=== PATIENT | male | born 1975 | race African-American/Black ===

== ENCOUNTER 2019-09-11 18:59 | Inpatient (IN) | payer MEDICAID ==
[~2019-09-11] VITALS: Ht 167.6 cm; Wt 91.6 kg
[2019-09-11 19:03] VITALS: BP 142/77
--- NOTE | 2019-09-11 19:17 | NUR ---
Dr. Bower examining patient.
--- NOTE | 2019-09-11 19:20 | NUR ---
EKG BEING OBTAINED. PHLEB OBTAINING LABS. PT NOT MAKING EYE CONTACT BUT WILLING TO ANSWER QUESTIONS. SITTER AT BEDSIDE. VITALLY STABLE. WILL CONTINUE TO MONITOR.
--- NOTE | 2019-09-11 19:25 | NUR ---
PT BIBA FOR SUICIDAL IDEATION. FOUND BY EMS WALKING IN TRAFFIC IN FRONT OF CARS. PT STATES HE CURRENTLY HAS THE INTENT TO KILL HIMSELF. STATES HE HEARS VOICES WHICH TELL HIM HE SHOULD JUMP IN FRONT OF A TRAIN TO END THE PAIN. STATES THE VOICES ALSO TELL HIM TO HARM OTHER PEOPLE. STATES HE WAS LOOKING FOR A TRAIN TO KILL HIMSELF. STATES HE DOES NOT HEAR THE VOICES AT THIS MOMENT. PT NOT MAKING EYE CONTACT BUT APPEARS FATIGUED AND SAD. PT STATES HE IS HOMELESS AND HIS LUGGAGE WAS STOLEN 8 DAYS AGO AND HAS NOT TAKEN HIS MEDICATION FOR BIPOLAR DEPRESSION AND PSYCHOSIS. PT PLACED ON 1:1 OBSERVATION FOR SAFETY, ROOM SECURED, PT CHANGED INTO HOSPITAL GOWN AND SOCKS, BELONGINGS GIVEN TO SECURITY. PT DENIES PAIN, RR EVEN AND UNLABORED, VSS. BED IN LOWEST POSITION, 2 SIDERAILS UP, CURTAIN OPEN. WILL CONTINUE TO MONITOR.
[2019-09-11 19:38] LABS: BASOPHILS # (AUTO) 0.1 K/uL (0.00-0.22); BASOPHILS % (AUTO) 1.2 % (0.0-2.0); EOSINOPHILS # (AUTO) 0.5 K/uL (0-0.4); EOSINOPHILS % (AUTO) 7.6 % (0.0-4.0); HEMOGLOBIN 12.5 g/dL (12.0-18.0); LYMPHOCYTES # (AUTO) 2.1 K/uL (2.0-11.5); MEAN CORPUSCULAR HEMOGLOBIN 28 pg (27-31); MEAN CORPUSCULAR HGB CONC 33 g/dL (33-37); MONOCYTES # (AUTO) 0.4 K/uL (0.8-1.0); MONOCYTES % (AUTO) 6.5 % (1.7-9.3); NEUTROPHILS # (AUTO) 3.6 K/uL (1.8-7.7); NEUTROPHILS % (AUTO) 53.7 % (42.2-75.2); PLATELET COUNT (AUTO) 230 K/uL (140-450); RED BLOOD CELL COUNT(AUTO) 4.52 MIL/uL (4.20-6.10); WHITE BLOOD COUNT (AUTO) 6.7 K/uL (4.8-10.8)
[2019-09-11 19:47] LABS: ALBUMIN 4.5 g/dL (3.4-5.0); ANION GAP 8.1 (8-16); ASPARTATE AMINOTRANSFERASE 42 U/L (15-37); CARBON DIOXIDE 34.1 mmol/L (21-32); CHLORIDE 102 mmol/L (98-107); CREATININE 1.5 mg/dL (0.6-1.3); GFR ARICAN-AMERICAN 65 mL/min (>90); GLUCOSE 94 mg/dL (74-106); POTASSIUM 4.2 mmol/L (3.5-5.1); SODIUM SERUM 140 mmol/L (136-145); TOTAL BILIRUBIN 0.5 mg/dL (0.0-1.0); UREA NITROGEN, BLOOD 12 mg/dL (7-18)
[2019-09-11 19:55] LABS: ACETAMINOPHEN < 0.5 ug/ml (10-30)
--- NOTE | 2019-09-11 20:03 | NUR ---
CC Aware of patient, will help with bed placement once cleared and evaluated
--- NOTE | 2019-09-11 20:30 | NUR ---
PT RESTING COMFORTABLY, SNORING, BUT EASILY AROUSABLE. VITALLY STABLE. NEUROLOGICALLY INTACT. JUST FINISHED EATING SNACK. SITTER AT BEDSIDE. WILL CONTINUE TO MONITOR.
[2019-09-11 20:33] LABS: BARBITURATE, URINE NEGATIVE ng/ml (NEG <=200); BENZODIAZEPINE, URINE NEGATIVE ng/mL (NEG <=200); CANNABINOID, URINE POSITIVE ng/mL (NEG <=50); COCAINE, URINE NEGATIVE ng/mL (NEG <=300); PHENCYCLIDINE SCREEN,URINE POSITIVE ng/mL (NEG <=25)
[2019-09-11 20:34] LABS: OPIATE, URINE NEGATIVE ng/mL (NEG <=2000)
--- NOTE | 2019-09-11 21:30 | NUR ---
PT SNORING, EASILY AROUSABLE. NEUROLOGICALLY INTACT. VITALLY STABLE. SITTER AT BEDSIDE. WILL CONTINUE TO MONITOR.
--- NOTE | 2019-09-11 22:29 | NUR ---
PT SLEEPING BUT EASILY AROUSABLE. DENIES NEEDS AT THIS TIME. VITALLY STABLE. SITTER AT BEDSIDE. WILL CONTINUE TO MONITOR.
--- NOTE | 2019-09-12 00:51 | NUR ---
PT SNORING; EASILY AROUSABLE. VSS. STATES HE IS HUNGRY; GIVING HIM FOOD. SITTER AT BEDSIDE. WILL CONTINUE TO MONITOR.
--- NOTE | 2019-09-12 01:11 | NUR ---
Intake paperwork has been sent to the [facility]/ [facility]/ [facility] [place]/ [facility]/ [facility]/ [facility] Will keep facility informed of any updates
[2019-09-12] MEDS ORDERED: ACETAMINOPHEN 325 MG TAB PO PRN (01:25)
[2019-09-12] MEDS ORDERED: HYDROcodone/APAP 5/325 MG 1 TAB TAB PO PRN (01:25)
[2019-09-12] MEDS ORDERED: LORazepam 2 MG/ML VIAL IM/IVP PRN (01:25)
[2019-09-12] MEDS ORDERED: DOCUSATE SODIUM 100 MG GELCAP PO PRN (01:25)
[2019-09-12] MEDS ORDERED: MORPHINE SULFATE 2 MG/ML SYR IVP PRN (01:25)
[2019-09-12] MEDS ORDERED: ONDANSETRON 4 MG/2 ML VIAL IM/IVP PRN (01:25)
--- NOTE | 2019-09-12 01:55 | NUR ---
Patient will be admitted to care of YANEZ. Admited to MED SURG. Will go to room 109B. Belongings list completed. Report to KIMBERLY CORTEZ.
[2019-09-12] MEDS ORDERED: INSULIN LISPRO SLIDING SCALE 100 UNITS/ML VIAL SUBQ PRN (02:00)
[2019-09-12] MEDS ORDERED: DEXTROSE 50% 50 ML SYR IVP PRN (02:00)
[2019-09-12 03:00] VITALS: BP 115/63
--- NOTE | 2019-09-12 03:00 | NUR ---
RECEIVED BEDSIDE REPORT FROM ED RN FOR PT'S CONTINUITY OF CARE. PT IS AAOX3, AMBULATORY, ON ROOM AIR, HAS RIGHT HAND 20G SALINE LOCK, SKIN IS INTACT, DENIES PAIN AT THIS TIME, REQUESTED AND PROVIDED SOME SNACKS, SUICIDE RISK PROTOCOL IN PLACE, SAFETY MEASURES IN PLACE, SAFETY ROOM CHECKLIST DONE. ORIENTED PT TO THE HOSPITAL ENVIRONMENT AND LICENSED SOCIAL WORKER ROUTINE, PT VERBALIZED UNDERSTANDING. PT ON 1:1 SITTER AT BEDSIDE.
[2019-09-12] MEDS ORDERED: QUET100T PO (03:28)
[2019-09-12] MEDS ORDERED: TRAZ-343 PO (03:28)
[2019-09-12] MEDS ORDERED: LORA-476 PO (03:28)
[2019-09-12] MEDS ORDERED: BUPR-160 PO (03:28)
[2019-09-12] MEDS ORDERED: LORazepam 1 MG TAB PO PRN (03:30)
--- NOTE | 2019-09-12 04:00 | NUR ---
PT FELL ASLEEP DURING ADMISSION QUESTIONING. PT COMFORTABLE AND SHOWS NO SIGNS OF DISTRESS.
[2019-09-12 04:29] LABS: MAGNESIUM 2.6 mg/dL (1.8-2.4); PHOSPHORUS 3.6 mg/dL (2.5-4.9); THYROID STIMULATING HORMONE 0.94 uIU/mL (0.34-3.74)
[2019-09-12] MEDS: NACL 0.9% 1,000 ML IV SCH ×2 (05:00→18:03)
--- NOTE | 2019-09-12 05:00 | NUR ---
ADMINISTER IVF ORDERED. PT ASLEEP.
[2019-09-12 05:13] LABS: APPEARANCE,URINE CLEAR (CLEAR); BILIRUBIN,URINE NEGATIVE (NEGATIVE); BLOOD, URINE NEGATIVE (NEGATIVE); COLOR,URINE YELLOW (YELLOW); LEUKOCYTE ESTERASE ,URINE NEGATIVE (NEGATIVE); NITRITE, URINE NEGATIVE (NEGATIVE); UGLUCOSE 1+ (NEGATIVE)
[2019-09-12 05:17] LABS: RBC,URINE 0-5 /HPF (0-5); WBC,URINE NONE SEEN /HPF (0-5)
--- NOTE | 2019-09-12 06:15 | NUR ---
CHANGE OF SITTER, GAVE REPORT TO JOSE SORENSON. PT REQUESTED AND PROVIDED SOME MORE SNACKS. PT IN STABLE CONDITION. NO VOICES HEARD OR THOUGHTS OF HARMING SELF OR OTHERS. WILL ENDORSE TO AM SHIFT RN FOR PT'S CONTINUITY OF CARE.
[2019-09-12 07:18] LABS: BASOPHILS # (AUTO) 0.1 K/uL (0.00-0.22); BASOPHILS % (AUTO) 0.8 % (0.0-2.0); EOSINOPHILS # (AUTO) 0.5 K/uL (0-0.4); EOSINOPHILS % (AUTO) 7.5 % (0.0-4.0); HEMATOCRIT 36.2 % (36-52); HEMOGLOBIN 11.7 g/dL (12.0-18.0); LYMPHOCYTES # (AUTO) 2.8 K/uL (2.0-11.5); LYMPHOCYTES % (AUTO) 42.6 % (20.5-51.1); MEAN CORPUSCULAR HEMOGLOBIN 27 pg (27-31); MEAN CORPUSCULAR HGB CONC 32 g/dL (33-37); MEAN CORPUSCULAR VOLUME 84.7 fL (80-94); MONOCYTES # (AUTO) 0.5 K/uL (0.8-1.0); MONOCYTES % (AUTO) 7.8 % (1.7-9.3); NEUTROPHILS # (AUTO) 2.7 K/uL (1.8-7.7); NEUTROPHILS % (AUTO) 41.3 % (42.2-75.2); PLATELET COUNT (AUTO) 172 K/uL (140-450); RED BLOOD CELL COUNT(AUTO) 4.27 MIL/uL (4.20-6.10); RED CELL DISTRIBUTION WIDTH 15.6 % (11.6-13.7); WHITE BLOOD COUNT (AUTO) 6.7 K/uL (4.8-10.8)
[2019-09-12] MEDS ORDERED: BLOOD GLUCOSE MONITORING 1 DEV DEV FS SCH (07:30)
[2019-09-12 07:41] LABS: ANION GAP 8.9 (8-16); CARBON DIOXIDE 30.2 mmol/L (21-32); CREATININE 1.3 mg/dL (0.6-1.3); POTASSIUM 4.1 mmol/L (3.5-5.1)
[2019-09-12 08:00] VITALS: BP 122/71
--- NOTE | 2019-09-12 08:09 | NUR ---
RECEIVED REPORT FROM DIEGO HARRIS FOR CONTINUITY OF CARE. PATIENT ALERT AWAKE ORIENTED NOT IN ANY DISTRESS NOTED. WITH SITTER FOR SAFETY. INITIAL ASSESSMENT INITIATED. PATIENT VERBALIZED THAT HE DOESN'T HAVE SUICIDAL THOUGHTS AND DOESN'T HEAR VOICES AT THIS TIME. NEEDS ATTENDED. WILL CONTINUE TO MONITOR. WAITING FOR PSYCH CONSULT.
[2019-09-12] MEDS: DOCUSATE SODIUM 100 MG GELCAP PO SCH (08:32)
[2019-09-12] MEDS: buPROPion 75 MG TAB PO SCH (08:32)
--- NOTE | 2019-09-12 10:29 | NUR ---
PATIENT RESTING IN BED, NO C/O PAIN. WILL CONTINUE TO MONITOR.
--- NOTE | 2019-09-12 12:50 | NUR ---
RECEIVED REPORT FROM MADINA CORTEZ. PT RESTING IN BED, AWAKE AND ALERT, AOX4. DENIES SI/HI. DENIES VISUAL AND AUDITORY HALLUCINATIONS. PT IS CALM AND COOPERATIVE. PT STATES HE NEEDS TO SPEAK WITH PAPER PATTERN FOLDER FOR HELP GETTING BACK TO HIS PREVIOUS LIVING ACCOMMODATION IN [place] AFTER DISCHARGE--WILL PASS THIS ON TO ASSISTANT TENNIS PROFESSIONAL RN. OTHERWISE ALL NEEDS MET AT THIS TIME. LUNGS CTAB. S1S2 REGULAR RHYTHM. 1:1 SITTER AT BEDSIDE FOR SI PRECAUTIONS.
--- NOTE | 2019-09-12 13:02 | NUR ---
REPORT GIVEN TO BIGG WALL RN FOR CONTINUITY OF CARE. IN STABLE CONDITION.
--- NOTE | 2019-09-12 15:31 | NUR ---
PT PULLED OUT IV ON RT HAND. APPLIED DRESSING RIGHT AWAY. PT UPSET, ASKING FOR SANDWICH. EXPLAINED HE IS ON [facility] DIET, UNABLE TO PROVIDE SANDWICH AT THIS TIME BUT DINNER WILL BE ARRIVING AROUND [phone]. DR. MONTANEZ NOTIFIED REGARDING NO IV ACCESS. PER DR. MONTANEZ, DO NOT NEED TO RE-INSERT IV AT THIS TIME.
[2019-09-12 16:00] VITALS: BP 129/65
--- NOTE | 2019-09-12 17:06 | NUR ---
PT RESTING IN BED, EYES OPEN, NO SIGNS OF DISTRESS. 1:1 SITTER REMAINS AT BEDSIDE.
--- NOTE | 2019-09-12 19:32 | NUR ---
RECEIVED PATIENT FRON AM NURSE, PT IS SLEEPING AT THIS TIME, NO SIGN OF DISTRESS.
--- NOTE | 2019-09-12 19:32 | NUR ---
REPORT TO VIDA CORTEZ. TRANSFER OF CARE AT THIS TIME. Addendum: 09/12/19 at 1933 by Judy Pizarro Meng, RN MICHELLE MCPHERSON
[2019-09-12] MEDS: traZODone 50 MG TAB PO SCH (21:39)
[2019-09-12] MEDS: QUEtiapine FUMARATE 100 MG TAB PO SCH (21:40)
[2019-09-12] MEDS ORDERED: CRUSHER, PILL MC ONE (21:44)
--- NOTE | 2019-09-12 22:00 | NUR ---
SLEEPING SOUNDLY, NO SIGN OF DISTRESS.
[2019-09-13] VITALS: BP 131/68
--- NOTE | 2019-09-13 | NUR ---
AWAKEN FOR V/S, NO COMPLAINTS, REQUESTED FOR A JELLO.
--- NOTE | 2019-09-13 03:55 | NUR ---
AWAKE ASK FOR FOR FOOD, SITTER HAD THE SANDWICH IN HER HAND AND PATIENT JUST GRAB FROM HER. ATE THE SANDWICH FAST.
--- NOTE | 2019-09-13 03:56 | NUR ---
PATIENT PRCTICALLY PUSH THE NURSE SITTER AND RUN TO THE FRIDGE AND GRAB ANOTHER SANDWICH. SECURITY WAS CALLED AND TALK TO HIM BUT NOT LISTEN.
--- NOTE | 2019-09-13 04:21 | NUR ---
PT IS IN BED RESTING QUIETLY.
--- NOTE | 2019-09-13 07:26 | NUR ---
RECEIVED BEDSIDE REPORT FROM SUPERVISOR PLASTERING NURSE. PT IS ASLEEP, 1:1 SITTER BY THE DOOR, NO S/S OF ACUTE DISTRESS NOTED. PT ON ROOM AIR, SKIN IS INTACT. NO IV SITE. WILL CONTINUE TO MONITOR.
[2019-09-13 08:00] VITALS: BP 115/61
--- NOTE | 2019-09-13 08:54 | NUR ---
PATIENT HAS BEEN SCREENED AND CATEGORIZED LOW NUTRITION RISK. PATIENT WILL BE SEEN WITHIN 7 DAYS OF ADMISSION. 09/18/[address]
[2019-09-13] MEDS: DOCUSATE SODIUM 100 MG GELCAP PO SCH (09:00)
--- NOTE | 2019-09-13 10:00 | NUR ---
AM MED ADMINISTERED. TOLERATED WELL. PT DECLINED THE COLACE, STATES THAT HE DOES NOT NEED IT.
[2019-09-13] MEDS: buPROPion 75 MG TAB PO SCH (10:30)
--- NOTE | 2019-09-13 13:52 | NUR ---
[employer] Note: Basic Screen: Yes High Risk DC Screen Yes Name: MACARIO Bhakta Tel: N/A Pre-Admission Living Arrangements: Other Other: TRANSITIONAL HOUSING Prior ADL Independent Current Home Health Name/Tel: N/A Current DME/02 Name/Tel: N/A Current Hospice Name/Tel: N/A Current Dialysis Name/Tel: N/A Healthcare Decision Maker: Patient Advance Directive No - REFUSED Physician Orders for Life Sustaining Treatment Form No Patient/Family Have Educational Needs No Information Taught: Community Resources Person Taught: Patient Teaching Tools: Verbal Factors Affecting Learning: None Participation Level: Active Evaluation: Verbalizes Understanding Needs Additional Education: No Discipline: Case Mgt/Social Svcs Tentative Discharge Plan/Destination: Other Other: [facility] Will require assistance post discharge: No Referred to Resolution Agent: No Tentative Discharge Plan Summary: Patient is a 44-year-old admitted for suicidal ideation. Patient has PMHX of schizophrenia, depression, anxiety, diabetes, and psychosis. Patient was admitted from home. SW met with patient at bedside to verify demographics. SW met with patient and assessed for any risk factors. Patient reported no current SI/HI. Patient stated that he was experiencing auditory hallucinations but only under the influence of substances. Patient reported history of marijuana, methamphetamines, and PCP use. Patient did not quantify how much he uses. Patient reported receiving $1000 from [employer]. SW provided patient with homeless resources, room and board resources, and substance abuse resources. Patient requested for SW to contact [facility], a substance abuse facility that he was a resident of [facility]. Patient stated that he would like to return there after discharge. SW contacted facility [phone] and spoke to Cristhian cardoso. Cristhian stated that counselor Yesika will call SW back to assist with discharge. SW will follow up as needed. Signature: TRICIA Morejon Date: Sep 13, 2019 Time: 13:51
--- NOTE | 2019-09-13 13:57 | NUR ---
PT SLEEPING COMFORTABLY IN BED, NO S/S OF ACUTE DISTRESS. SITTER IS BY THE DOOR.
[2019-09-13 16:00] VITALS: BP 119/63
--- NOTE | 2019-09-13 16:21 | NUR ---
[facility] No open beds at the moment. W ill continue to locate placement
--- NOTE | 2019-09-13 17:54 | NUR ---
ENDORSED PT TO DIEGO KNOX, FOR CONTINUITY OF CARE
--- NOTE | 2019-09-13 17:55 | NUR ---
RECEIVED REPORT FROM LANE. PT IN STABLE CONDITION, NO DISTRESS NOTED, DENIES PAIN. NO IV IN PLACE. CCHO 60G DIET. PT AMBULATORY. RESPIRATIONS EVEN AND UNLABORED ON ROOM AIR. SAFETY MEASURES IN PLACE. CALL LIGHT WITHIN REACH. BED IN LOW POSITION, 1:1 SITTER PRESENT. WILL CONTINUE TO MONITOR.
--- NOTE | 2019-09-13 19:05 | NUR ---
PT ENDORSED TO NIGHT NURSE FOR CONTINUITY OF CARE.
--- NOTE | 2019-09-13 19:45 | NUR ---
A/A/O X4.DENIES ANY DISCOMFORT @ THIS TIME. DENIES SOB.SITTER @ THE BS.
--- NOTE | 2019-09-13 21:00 | NUR ---
DUE MEDS ADM.
[2019-09-13] MEDS ORDERED: CRUSHER, PILL MC ONE (21:27)
[2019-09-13] MEDS: traZODone 50 MG TAB PO SCH (21:30)
[2019-09-13] MEDS: QUEtiapine FUMARATE 100 MG TAB PO SCH (21:31)
--- NOTE | 2019-09-13 22:00 | NUR ---
RESTING COMFORTABLY IN NO ACUTE DISTRESS.SITTER @ THE BS.
--- NOTE | 2019-09-13 23:27 | NUR ---
Pending psych re-evaluation in the am by Dr. Peter
--- NOTE | 2019-09-14 | NUR ---
REFUSED VITAL SIGNS TO BE TAKEN.
--- NOTE | 2019-09-14 02:50 | NUR ---
PT GOT OUT OF BED & WENT TO THE [place] TO GET FOODS.SECURITY WAS CALLED BY ORDER EXPEDITER & RESPONDED.SECURITY SPOKE TO PT.
--- NOTE | 2019-09-14 04:46 | NUR ---
TRISTAD SUGAR CHECK PER PT'S REQUEST 145
--- NOTE | 2019-09-14 05:34 | NUR ---
Patient to be re-evaluated by psych. Will await results of re-evaluation. Will endorse to incoming shift
--- NOTE | 2019-09-14 05:52 | NUR ---
REFUSED BLD DRAW FOR LAB.
--- NOTE | 2019-09-14 06:30 | NUR ---
MADE AWARE PT FEFUSED BLD DRAW.
--- NOTE | 2019-09-14 06:52 | NUR ---
ENDORSED IN NO ACUTE DISTRESS.SAFETY MAINTAINED.LAURYN @ THE BS.
--- NOTE | 2019-09-14 07:00 | NUR ---
PT IS ASLEEP IN BED WITH NO SIGNS OF DISTRESS NOTED WITH SITTER IS AT BEDSIDE. RESPIRATIONS ARE CLEAR AND UNLABORED ON ROOM AIR. SKIN IS WARM, DRY, AND INTACT WITH NO IV IN PLACE. SAFETY MEASURES ARE IN PLACE, CALL LIGHT WITHIN REACH, AND WILL CONTINUE TO MONITOR.
[2019-09-14 08:00] VITALS: BP 138/63
[2019-09-14] MEDS: DOCUSATE SODIUM 100 MG GELCAP PO SCH (09:45)
[2019-09-14] MEDS: buPROPion 75 MG TAB PO SCH (09:45)
--- NOTE | 2019-09-14 09:50 | NUR ---
PT IS ASLEEP IN BED WITH NO SIGNS OF DISTRESS. PT STATES THAT HE HAS NO THOUGHTS OF HARMING HIMSELF OR OTHERS. MEDICATIONS ADMINISTERED PER ORDER AND TOLERATED WELL. SAFETY MEASURES IN PLACE, CALL LIGHT WITHIN REACH , AND WILL CONTINUE TO MONITOR.
--- NOTE | 2019-09-14 12:16 | NUR ---
PT IN BED ASLEEP, NO DISTRESS NOTED. 1:1 SITTER OBSERVING PT. SAFETY MEASURES IN PLACE. CALL LIGHT WITHIN REACH. WILL CONTINUE TO MONITOR.
--- NOTE | 2019-09-14 13:11 | NUR ---
Monitoring and assessing patient's chart and notes. I printed out and noted the instability of patient being transferred or discharged at this time. The hold will this evening 09/13 at 18:23. Will continue to monitor notes and await for re-evaluation of care for stability and the updated hold before continuing to assist with bed placement for behavioral health continuity of care
--- NOTE | 2019-09-14 14:22 | NUR ---
PT REQUESTED TO TAKE A SHOWER. PT ESCORTED TO BATHROOM BY SITTER AND ASSISTED IN TAKING A SHOWER. NO DISTRESS NOTED IN PT, WILL CONTINUE TO MONITOR.
[2019-09-14 16:00] VITALS: BP 122/58
--- NOTE | 2019-09-14 17:00 | NUR ---
PT IS AWAKE AND OUT OF BED AND REPORTS BEING HUNGRY. SITTER IS AT BEDSIDE. PT IS AGITATED AND WANTS TO SPEAK TO THE PHYSICIAN ABOUT DISCHARGE. SAFETY MEASURES IN PLACE AND WILL CONTINUE TO MONITOR.
--- NOTE | 2019-09-14 19:15 | NUR ---
ENDORSED PT TO NIGHT NURSE FOR CONTINUITY OF CARE.
--- NOTE | 2019-09-14 19:22 | NUR ---
RECEIVED BEDSIDE REPORT FROM DAY SHIFT NURSE. PATIENT IS SLEEPING RESPIRATION EVEN UNLABORED ON ROOM AIR. NO DISTRESS NOTED. SKIN IS WARM AND DRY. NO IV SITE. SITTER AT BEDSIDE. PLAN OF CARE WAS UP TO DATE. AWAITING FOR DR. GAMBOA. ALL SAFETY MEASURES IN PLACE. BED IS AT LOW POSITION. WILL CONTINUE TO MONITOR.
--- NOTE | 2019-09-14 20:05 | NUR ---
DR. DAWN AT BEDSIDE. PER LÓPEZ PATIENT IS OKAY TO D/C [facility]. WILL PREPARE ALL DISCHARGE PAPER.
[2019-09-14 20:17] VITALS: BP 141/73
--- NOTE | 2019-09-14 20:37 | NUR ---
PATIENT SIGNED ALL PAPERWORKS EDUCATED ABOUT THE IMPORTANCE OF F/U APPOINTMENT WITH PCP. EDUCATED PT DIAGNOSIS MEDS S/SX WHEN TO GO TO ER. VERBALIZE UNDERSTANDING. AWAITING FOR SECURITY TO BRING HIS BELONGINGS.
[2019-09-14] MEDS: QUEtiapine FUMARATE 100 MG TAB PO SCH (21:00)
[2019-09-14] MEDS: traZODone 50 MG TAB PO SCH (21:00)
--- NOTE | 2019-09-14 21:19 | NUR ---
PT REFUSED SCHEDULED MEDS MEDICATION. PER PATIENT THE MEDICINE MAKES HIM SLEEPY. EDUCATED ON THE PURPOSE OF THE MEDICATION AND THE RISK AND BENEFITS. STILL REFUSED, WILL CONTINUE TO MONITOR.
--- NOTE | 2019-09-14 21:25 | NUR ---
PATIENT LEFT THE FACILITY IN STABLE CONDITION AND WITH BELONGINGS. PATIENT REFUSED FLU AND PNA VACCINE. EDUCATED THE PURPOSE, RISK AND BENEFITS. STILL REFUSED. PER PATIENT HIS GONNA GO TO CATCH A TRAIN HEADING TO VT. ANESTHESIA ASSOCIATE PATIENT.
== END 2019-09-14 21:25 | disposition home or self-care (01) | DRG 812 ==
LOC: MED 18:59 → MTU 09-12 01:23
PROVIDERS: ADMIT General Practice; ATTEND General Practice
DX: T40.7X1A Poisoning by cannabis (derivatives), accidental (unintentional), initial encounter (principal); N17.0 Acute kidney failure with tubular necrosis; G92 Toxic encephalopathy; R45.851 Suicidal ideations; F20.9 Schizophrenia, unspecified; E83.41 Hypermagnesemia; I50.9 Heart failure, unspecified; E11.9 Type 2 diabetes mellitus without complications; F31.9 Bipolar disorder, unspecified; F17.210 Nicotine dependence, cigarettes, uncomplicated; F41.9 Anxiety disorder, unspecified; T40.991A Poisoning by other psychodysleptics [hallucinogens], accidental (unintentional), initial encounter; Z71.6 Tobacco abuse counseling; Y92.89 Other specified places as the place of occurrence of the external cause; Z91.14 Patient's other noncompliance with medication regimen
CPT/HCPCS: 36415; 71045; 80048; 80053; 80305; 81001; 82140; 82948; 83036; 83690; 83735; 83880; 84100; 84443; 85025; 87081; 93005; 99285; G0480; G0482; J7030; Q0092